=== PATIENT | female | born 1965 | race Two or more races ===

== ENCOUNTER 2017-12-28 15:38 | Emergency (ER) | payer OTHER ==
[2017-12-28 15:47] VITALS: BP 106/67; PULSE 77; TEMP 99.2; BMI 39.8
--- NOTE | 2017-12-28 15:48 | PDOC ---
Rapid Medical Evaluation Time Seen by Provider: 12/28/17 15:44 Medical Evaluation: Allergies Allergy/AdvReac Type Severity Reaction Status Date / Time No Known Drug Allergies Allergy Verified 12/28/17 15:44 12/28/17 15:44 I have performed a brief in-person evaluation of this patient. The patient presents with a chief complaint of: pain to R back, sent by PCP [facility] r/o PE, SOB for 3-4 days, pleuritic pain, radiates to "front of my stomach", 8/10 pain Pertinent physical exam findings: uncomfortable appearing, SOB I have ordered the following: labs, ekg The patient will proceed to the ED for further evaluation. Discharge Disposition - Diagnosis Shortness of breath - Referrals Referrals: Guy Saab MD [Primary Care Provider] - - Patient Instructions - Post Discharge Activity
[2017-12-28 17:41] LABS: HEMOGLOBIN 13.7 GM/dL (10.7-15.3); MEAN PLT VOLUME 10.1 fl (7.5-11.1); NEUT % 72.2 % (42.8-82.8)
[2017-12-28 17:42] LABS: URINE APPEARANCE CLEAR; URINE BILIRUBIN NEGATIVE (NEGATIVE); URINE BLOOD NEGATIVE (NEGATIVE); URINE COLOR YELLOW; URINE GLUCOSE (UA) NEGATIVE (NEGATIVE); URINE KETONE NEGATIVE (NEGATIVE); URINE LEUK ESTERASE NEGATIVE (NEGATIVE); URINE NITRITE NEGATIVE (NEGATIVE); URINE PROTEIN NEGATIVE (NEGATIVE); URINE UROBILINOGEN NEGATIVE mg/dL (0.2-1.0)
[2017-12-28 17:48] LABS: BASO % 0.5 % (0-2.0); EOS % 0.9 % (0-4.5); HEMATOCRIT 41.6 % (32.4-45.2); LYMPH % 22.6 % (8-40); MCH 29.6 pg (25.7-33.7); MEAN CELL VOLUME 89.8 fl (80-96); MONO % 3.8 % (3.8-10.2); PLATELET COUNT 257 K/MM3 (134-434); RBC 4.64 M/mm3 (3.60-5.2); RDW 13.8 % (11.6-15.6); WHITE BLOOD COUNT 13.3 K/mm3 (4.0-10.0)
[2017-12-28 18:16] LABS: ALBUMIN 4.2 g/dl (3.4-5.0); ANION GAP 10 (8-16); BILIRUBIN,TOTAL 0.2 mg/dL (0.2-1.0); BLOOD UREA NITROGEN 14 mg/dL (7-18); CALCIUM 8.9 mg/dL (8.5-10.1); CHLORIDE 104 mmol/L (98-107); CO2 23 mmol/L (21-32); CREATININE 0.6 mg/dL (0.55-1.02); GLUCOSE,RANDOM 178 mg/dL (74-106); POTASSIUM 4.1 mmol/L (3.5-5.1); SGOT/AST 12 U/L (15-37); SGPT/ALT 33 U/L (12-78); SODIUM 137 mmol/L (136-145); TOT PROT 8.1 g/dl (6.4-8.2)
[2017-12-28 18:18] LABS: ALK PHOS 125 U/L (45-117)
[2017-12-28 18:19] LABS: PROTHROMBIN TIME (PATIENT) 11.3 SEC (9.98-11.88)
[2017-12-28] MEDS ORDERED: SODIUM CHLORIDE 1,000 ML IV STA (19:20)
[2017-12-28] MEDS ORDERED: morphine CARPU-JECT 2 MG/1 ML DISP.SYRIN IVPUSH ONE (20:45)
[2017-12-28] MEDS ORDERED: MORPHINE SULFATE 10 MG/1 ML *VIAL ONE (20:47)
--- NOTE | 2017-12-28 21:31 | PDOC ---
History of Present Illness - General History Source: Patient Exam Limitations: No Limitations - History of Present Illness Initial Comments: 12/28/17 21:33 The patient is a 51 year old female, with a significant past medical history of diabetes, hyperlipidemia, and hemorrhoids, who presents to the emergency department, sent by Dr. Saab, for complaint of shortness of breath and pleuritic right sided back pain for about 3 days. The patient states the pain radiates from the right side of her back to the RLQ of her abdomen and is exacerbated with breathing and moving. She denies alleviating factors of pain. The patient denies headache and dizziness. The patient denies fever, chills, nausea, vomit, diarrhea and constipation. The patient denies dysuria, frequency, urgency and hematuria. Allergies: None reported. Past Surgical History: Social History: Current everyday smoker( a pack per day). Denies alcohol or drug use. PCP: Dr. Saab <Magdalena Dexter - Last Filed: 12/28/17 23:30> <Glory Enamorado - Last Filed: 12/28/17 23:48> - General Chief Complaint: Shortness of Breath Stated Complaint: BACK PAIN (PCP SENT) Time Seen by Provider: 12/28/17 15:44 Past History <Magdalena Dexter - Last Filed: 12/28/17 23:30> - Past Medical History COPD: No Diabetes: Yes GI Disorders: Yes (HEMORRHOIDS) Hypercholesterolemia: Yes - Surgical History Abdominal Surgery: Yes - Suicide/Smoking/Psychosocial Hx Smoking History: Current every day smoker Have you smoked in the past 12 months: Yes Number of Cigarettes Smoked Daily: 7 Information on smoking cessation initiated: No 'Breaking Loose' booklet given: 12/04/15 Hx Alcohol Use: No Drug/Substance Use Hx: No Substance Use Type: None Hx Substance Use Treatment: No <Glory Enamorado - Last Filed: 12/28/17 23:48> - Past Medical History Allergies/Adverse Reactions: Allergies Allergy/AdvReac Type Severity Reaction Status Date / Time No Known Drug Allergies Allergy Verified 12/28/17 15:44 Home Medications: Ambulatory Orders Unobtainable [Unobtainable] 12/28/17 Review of Systems - Review of Systems Able to Perform ROS?: Yes Comments:: 12/28/17 21:33 CONSTITUTIONAL: Absent: fever, chills, diaphoresis, generalized weakness, malaise, loss of appetite HEENT: Absent: rhinorrhea, nasal congestion, throat pain, throat swelling, difficulty swallowing, mouth swelling, ear pain, eye pain, visual Changes CARDIOVASCULAR: Absent: chest pain, syncope, palpitations, irregular heart rate, lightheadedness , peripheral edema RESPIRATORY: (+) shortness of breath, pleuritic right sided back pain radiating to RLQ. Absent: cough, dyspnea with exertion, orthopnea, wheezing, stridor, hemoptysis GASTROINTESTINAL: Absent: abdominal pain, abdominal distension, nausea, vomiting, diarrhea, constipation, melena, hematochezia GENITOURINARY: Absent: dysuria, frequency, urgency, hesitancy, hematuria, flank pain, genital pain MUSCULOSKELETAL: Absent: myalgia, arthralgia, joint swelling SKIN: Absent: rash, itching, pallor HEMATOLOGIC/IMMUNOLOGIC: Absent: easy bleeding, easy bruising, lymphadenopathy, frequent infections ENDOCRINE: Absent: unexplained weight gain, unexplained weight loss, heat intolerance, cold intolerance NEUROLOGIC: Absent: headache, focal weakness or paresthesias, dizziness, unsteady gait, seizure, mental status changes, bladder or bowel incontinence PSYCHIATRIC: Absent: anxiety, depression, suicidal or homicidal ideation, hallucinations. <Magdalena Dexter - Last Filed: 12/28/17 23:30> *Physical Exam - Vital Signs Last Vital Signs Temp Pulse Resp BP Pulse Ox 99.2 F 77 18 106/67 98 12/28/17 15:43 12/28/17 15:43 12/28/17 15:43 12/28/17 15:43 12/28/17 15:43 - Physical Exam Comments: 12/28/17 21:34 GENERAL: Well developed, Obese, Awake and alert. No acute distress. HEENT: Normocephalic, atraumatic. PERRLA, EOMI. No conjunctival pallor. Sclera are non- icteric. Moist mucous membranes. Oropharynx is clear. NECK: Supple. Full ROM. No JVD. Carotid pulses 2+ and symmetric, without bruits. No thyromegaly. No lymphadenopathy. CARDIOVASCULAR: Regular rate and rhythm. No murmurs, rubs, or gallops. Distal pulses are 2+ and symmetric. PULMONARY: No evidence of respiratory distress. Lungs clear to auscultation bilaterally. No wheezing, rales or rhonchi. ABDOMINAL: Soft. Non-tender. Non-distended. No rebound or guarding. No organomegaly. Normoactive bowel sounds. MUSCULOSKELETAL Normal range of motion at all joints. No bony deformities or tenderness. No CVA tenderness. EXTREMITIES: No cyanosis. No clubbing. No edema. No calf tenderness. SKIN: Warm and dry. Normal capillary refill. No rashes. No jaundice. NEUROLOGICAL: Alert, awake, appropriate. Cranial nerves 2-12 intact. Normoreflexic in the upper and lower extremities. Normal speech. Toes are down-going bilaterally. Gait is normal without ataxia. PSYCHIATRIC: Cooperative. Good eye contact. Appropriate mood and affect. <Magdalena Dexter - Last Filed: 12/28/17 23:30> - Vital Signs Last Vital Signs Temp Pulse Resp BP Pulse Ox 99.2 F 77 18 106/67 98 12/28/17 15:43 12/28/17 15:43 12/28/17 15:43 12/28/17 15:43 12/28/17 15:43 <Glory Enamorado - Last Filed: 12/28/17 23:48> Heart Score/ECG Review - ECG Intrepretation Comment:: 12/28/17 22:39 EKG was read by Dr. Enamorado at 19:29 Impression: Normal sinus rhythm with sinus arrhythmias <Magdalena Dexter - Last Filed: 12/28/17 23:30> ED Treatment Course - LABORATORY CBC & Chemistry Diagram: 12/28/17 16:55 12/28/17 16:50 - ADDITIONAL ORDERS Additional order review: Laboratory Results 12/28/17 12/28/17 12/28/17 16:55 16:55 16:55 PT with INR INR D-Dimer Sodium Potassium Chloride Carbon Dioxide Anion Gap BUN Creatinine Creat Clearance w eGFR Random Glucose Calcium Total Bilirubin AST ALT Alkaline Phosphatase Creatine Kinase Troponin I B-Natriuretic Peptide 77.76 Total Protein Albumin Urine Color Yellow Urine Appearance Clear Urine pH 5.0 Ur Specific [place] 1.026 Urine Protein Negative Urine Glucose (UA) Negative Urine Ketones Negative Urine Blood Negative Urine Nitrite Negative Urine Bilirubin Negative Urine Urobilinogen Negative Ur Leukocyte Esterase Negative Urine HCG, Qual Negative 12/28/17 12/28/17 12/28/17 16:50 16:50 16:50 PT with INR 11.30 INR 1.00 D-Dimer 502 H Sodium 137 Potassium 4.1 Chloride 104 Carbon Dioxide 23 Anion Gap 10 BUN 14 Creatinine 0.6 Creat Clearance w eGFR > 60 Random Glucose 178 H Calcium 8.9 Total Bilirubin 0.2 AST 12 L ALT 33 Alkaline Phosphatase 125 H Creatine Kinase 80 Troponin I < 0.02 B-Natriuretic Peptide Total Protein 8.1 Albumin 4.2 Urine Color Urine Appearance Urine pH Ur Specific [place] Urine Protein Urine Glucose (UA) Urine Ketones Urine Blood Urine Nitrite Urine Bilirubin Urine Urobilinogen Ur Leukocyte Esterase Urine HCG, Qual 12/28/17 16:55 RBC 4.64 MCV 89.8 MCHC 33.0 RDW 13.8 MPV 10.1 Neutrophils % 72.2 Lymphocytes % 22.6 Monocytes % 3.8 Eosinophils % 0.9 Basophils % 0.5 - RADIOLOGY Radiograph Interpretation: 12/28/17 23:30 EXAM: CTA CHEST WITH IV CONTRAST TECHNIQUE: One of more of the following dose reduction techniques were use: Automated exposure control adjustment of the mA and/or kV according to the patient size, use of iterative reconstructive technique. CT of the chest is performed with multi-planar reconstructions per PE protocol after the uneventful intravenous injection of IV contrast. Additional maximum intensity projection ( MIP) 3D post contrast images of the chest were reviewed. INDICATION: Rule out acute pulmonary embolism COMPARISON: None. FINDINGS: CARDIOVASCULAR: The heart is normal in size.. There is no significant pericardial effusion. The thoracic aorta is normal without aneurysm or dissection.. Pulmonary embolism: No evidence of acute pulmonary embolism. LUNGS: The tracheobronchial tree is grossly patent. There is no airspace consolidation, pleural effusion or pneumothorax. LYMPH NODES: Prominent bilateral axillary lymph nodes, likely reactive. UPPER ABDOMEN: Hepatomegaly with steatosis. BONES: No suspicious osseous abnormality. IMPRESSION: 1. No evidence of acute pulmonary embolism. This CT exam has been performed using low dose protocols to limit radiation exposure to as low as reasonably achievable. This center is recognized and certified by the [employer], a designation awarded to centers who have demonstrated faculty competency, clinical image excellence and radiation safety compliance requirements. Cheikh Vargas MD 12/28/2017 22:38 EST - Medications Given in the ED: ED Medications Discontinued Medications Generic Name Dose Route Start Last Admin Trade Name Freq PRN Reason Stop Dose Admin Sodium Chloride 1,000 mls @ 1,000 mls/hr 12/28/17 19:20 12/28/17 19:41 Normal Saline - IV 12/28/17 20:19 1,000 mls/hr ASDIR STA Administration Morphine Sulfate 2 mg 12/28/17 20:45 12/28/17 20:53 Morphine Injection - IVPUSH 12/28/17 20:46 2 mg ONCE ONE Administration <Magdalena Dexter - Last Filed: 12/28/17 23:30> - LABORATORY CBC & Chemistry Diagram: 12/28/17 16:55 12/28/17 16:50 - ADDITIONAL ORDERS Additional order review: Laboratory Results 12/28/17 12/28/17 12/28/17 16:55 16:55 16:55 PT with INR INR D-Dimer Sodium Potassium Chloride Carbon Dioxide Anion Gap BUN Creatinine Creat Clearance w eGFR Random Glucose Calcium Total Bilirubin AST ALT Alkaline Phosphatase Creatine Kinase Troponin I B-Natriuretic Peptide 77.76 Total Protein Albumin Urine Color Yellow Urine Appearance Clear Urine pH 5.0 Ur Specific [place] 1.026 Urine Protein Negative Urine Glucose (UA) Negative Urine Ketones Negative Urine Blood Negative Urine Nitrite Negative Urine Bilirubin Negative Urine Urobilinogen Negative Ur Leukocyte Esterase Negative Urine HCG, Qual Negative 12/28/17 12/28/17 12/28/17 16:50 16:50 16:50 PT with INR 11.30 INR 1.00 D-Dimer 502 H Sodium 137 Potassium 4.1 Chloride 104 Carbon Dioxide 23 Anion Gap 10 BUN 14 Creatinine 0.6 Creat Clearance w eGFR > 60 Random Glucose 178 H Calcium 8.9 Total Bilirubin 0.2 AST 12 L ALT 33 Alkaline Phosphatase 125 H Creatine Kinase 80 Troponin I < 0.02 B-Natriuretic Peptide Total Protein 8.1 Albumin 4.2 Urine Color Urine Appearance Urine pH Ur Specific [place] Urine Protein Urine Glucose (UA) Urine Ketones Urine Blood Urine Nitrite Urine Bilirubin Urine Urobilinogen Ur Leukocyte Esterase Urine HCG, Qual 12/28/17 16:55 RBC 4.64 MCV 89.8 MCHC 33.0 RDW 13.8 MPV 10.1 Neutrophils % 72.2 Lymphocytes % 22.6 Monocytes % 3.8 Eosinophils % 0.9 Basophils % 0.5 - RADIOLOGY Radiology Studies Ordered: Category Date Time Status CHEST CTA [CT] Stat CT Scan 12/28/17 19:19 Ordered - Medications Given in the ED: ED Medications Discontinued Medications Generic Name Dose Route Start Last Admin Trade Name Barbara PRN Reason Stop Dose Admin Sodium Chloride 1,000 mls @ 1,000 mls/hr 12/28/17 19:20 12/28/17 19:41 Normal Saline - IV 12/28/17 20:19 1,000 mls/hr ASDIR STA Administration Morphine Sulfate 2 mg 12/28/17 20:45 12/28/17 20:53 Morphine Injection - IVPUSH 12/28/17 20:46 2 mg ONCE ONE Administration <Glory Enamorado - Last Filed: 12/28/17 23:48> *DC/Admit/Observation/Transfer - Attestations Scribe Attestion: 12/28/17 21:35 Documentation prepared by Magdalena Dexter, acting as er medical technician for Glory Enamorado MD <Magdalena Dexter - Last Filed: 12/28/17 23:30> <Glory Enamorado - Last Filed: 12/28/17 23:48> Diagnosis at time of Disposition: Pleuritic chest pain - Discharge Dispostion Disposition: HOME Condition at time of disposition: Stable - Referrals Referrals: Guy Saab MD [Primary Care Provider] - - Patient Instructions Printed Discharge Instructions: DI for Atypical Chest Pain Additional Instructions: please take extra strength tylenol or aleve or motrin for pain Followup with your physician return for any worsening symptoms - Post Discharge Activity
[2017-12-28] MEDS ORDERED: KETOROLAC TROMETHAMINE 60 MG/2 ML VIAL IM ONE (23:55)
[2017-12-28] MEDS ORDERED: KETOROLAC TROMETHAMINE 60 MG/2 ML VIAL ONE (23:56)
--- NOTE | 2017-12-29 10:13 | EKG ---
Test Reason : Blood Pressure : / mmHG Vent. Rate : 077 BPM Atrial Rate : 077 BPM P-R Int : 160 ms QRS Dur : 086 ms QT Int : 392 ms P-R-T Axes : 023 043 038 degrees QTc Int : 443 ms NORMAL SINUS RHYTHM WITH SINUS ARRHYTHMIA NORMAL ECG WHEN COMPARED WITH ECG OF 22-DEC-2016 18:27, NO SIGNIFICANT CHANGE WAS FOUND Confirmed by AGAPITO LINDER MD ([id number]) on 12/29/2017 10:12:49 AM Referred By: Confirmed By:AGAPITO LINDER MD
== END 2017-12-28 23:59 | disposition home or self-care (01) ==
LOC: JER 15:38 → SUPCPDRO 15:38 → JER 23:59
PROC: 3E0337Z Introduction of Electrolytic and Water Balance Substance into Peripheral Vein, Percutaneous Approach (ICD-10-PCS; principal; 2017-12-28)
PROC: 3E033NZ Introduction of Analgesics, Hypnotics, Sedatives into Peripheral Vein, Percutaneous Approach (ICD-10-PCS; 2017-12-28)
PROC: 3E0233Z Introduction of Anti-inflammatory into Muscle, Percutaneous Approach (ICD-10-PCS; 2017-12-28)
DX: R07.89 Other chest pain (principal); E11.9 Type 2 diabetes mellitus without complications; E78.00 Pure hypercholesterolemia, unspecified; F17.210 Nicotine dependence, cigarettes, uncomplicated
CPT/HCPCS: 36415; 71046-TC-FY; 71275-TC; 80053; 81003; 82550; 83880; 84484; 84703; 85025; 85379; 85610; 87086; 93005; 93010; 99284-25

== ENCOUNTER 2020-09-26 04:49 | Day surgery (SDC) | payer OTHER ==
[2020-09-25 12:56] VITALS: BMI 39.6
[2020-09-26 08:59] VITALS: TEMP 98.2
[2020-09-26] MEDS ORDERED: BACITRACIN 15 GM TUBE TOPICAL OINTMENT ONE (09:22)
[2020-09-26 11:17] VITALS: BP 126/82; PULSE 72
== END 2020-09-26 10:40 | disposition home or self-care (01) ==
LOC: JASU-ENDO 04:49
PROVIDERS: ATTEND Internal Medicine Gastroenterology
PROC: 0DB68ZX Excision of Stomach, Via Natural or Artificial Opening Endoscopic, Diagnostic (ICD-10-PCS; 2020-09-26)
PROC: 0DB98ZX Excision of Duodenum, Via Natural or Artificial Opening Endoscopic, Diagnostic (ICD-10-PCS; principal; 2020-09-26 08:00)
DX: K29.50 Unspecified chronic gastritis without bleeding (principal); K29.80 Duodenitis without bleeding
CPT/HCPCS: 82962; 88305-TC; 88342-TC

== ENCOUNTER 2020-10-01 05:04 | Day surgery (SDC) | payer OTHER ==
[2020-09-27 15:39] VITALS: BMI 39.6
[2020-10-01 08:54] VITALS: TEMP 98
[2020-10-01 10:05] VITALS: BP 109/76; PULSE 78
== END 2020-10-01 09:47 | disposition home or self-care (01) ==
LOC: JASU-ENDO 05:04
PROVIDERS: ATTEND Internal Medicine Gastroenterology
PROC: 0DBP8ZX Excision of Rectum, Via Natural or Artificial Opening Endoscopic, Diagnostic (ICD-10-PCS; principal; 2020-10-01 08:00)
DX: K57.30 Diverticulosis of large intestine without perforation or abscess without bleeding (principal); K62.89 Other specified diseases of anus and rectum; K64.8 Other hemorrhoids; I10 Essential (primary) hypertension; E11.9 Type 2 diabetes mellitus without complications
CPT/HCPCS: 82962; 88305-TC

== ENCOUNTER 2021-06-10 12:09 | Inpatient (IN) | payer OTHER ==
[2021-06-10] MEDS ORDERED: ACETAMINOPHEN 500 MG TABLET (FP) PO ONE (13:40)
[2021-06-10] MEDS ORDERED: ACETAMINOPHEN 1000 MG/100 ML VIAL (NON FORMULARY) IVPB ONE (14:11)
[2021-06-10] MEDS ORDERED: ACETAMINOPHEN INJECTION 100 ML IVPB ONE (14:11)
[2021-06-10] MEDS ORDERED: PIPERACILLIN/TAZOB 4.5 GM 4.5 GM in DEXTROSE 5%-WATER 100 ML IVPB ONE (14:25)
[2021-06-10] MEDS ORDERED: VANCOMYCIN 1 GM in D5W (PRE-DOCKED) 1,000 MG/250 ML IVPB ONE (14:26)
[2021-06-10] MEDS ORDERED: VANCOMYCIN 1 GRAM (PRE-DOCKED) 1,000 MG/250 ML BAG IVPB ONE ×2 (14:36→14:37)
[2021-06-10] MEDS ORDERED: PIPERACILLIN/TAZOB 4.5 GM 4.5 GM/100 ML BAG IVPB ONE (14:36)
[2021-06-10 14:45] LABS: BASO % 1.1 % (0-2.0); EOS % 0.7 % (0-4.5); HEMATOCRIT 40.9 % (32.4-45.2); HEMOGLOBIN 13.7 GM/dL (10.7-15.3); LYMPH % 16.6 % (8-40); MCH 29.7 pg (25.7-33.7); MCHC 33.5 g/dl (32.0-36.0); MEAN CELL VOLUME 88.6 fl (80-96); MEAN PLT VOLUME 9.5 fl (7.5-11.1); MONO % 2.8 % (3.8-10.2); NEUT % 78.8 % (42.8-82.8); PLATELET COUNT 278 10^3/uL (134-434); RBC 4.61 M/mm3 (3.60-5.2); RDW 14.2 % (11.6-15.6); WHITE BLOOD COUNT 15.8 K/mm3 (4.0-10.0)
[2021-06-10 14:53] LABS: INR 1.02 (0.83-1.09); PROTHROMBIN TIME (PATIENT) 12.3 SEC (9.7-13.0)
[2021-06-10 14:55] LABS: ACTIVATED PTT 28.7 SECONDS (25.2-36.5)
[2021-06-10 15:10] LABS: CHLORIDE 106 mmol/L (98-107); SODIUM 137 mmol/L (136-145)
[2021-06-10 15:12] LABS: BLOOD UREA NITROGEN 9.6 mg/dL (7-18); CALCIUM 9.2 mg/dL (8.5-10.1)
[2021-06-10 15:13] LABS: ALBUMIN 3.8 g/dl (3.4-5.0); CO2 22 mmol/L (21-32); GLUCOSE,RANDOM 166 mg/dL (74-106)
[2021-06-10 15:16] LABS: CREATININE 0.6 mg/dL (0.55-1.3)
[2021-06-10 15:18] LABS: ALK PHOS 122 U/L (45-117); BILIRUBIN,TOTAL 0.5 mg/dL (0.2-1); TOT PROT 8.2 g/dl (6.4-8.2)
[2021-06-10 15:24] LABS: SGOT/AST 58 U/L (15-37)
[2021-06-10 15:33] LABS: ANION GAP 10 MMOL/L (8-16); SGPT/ALT 24 U/L (13-61)
[2021-06-10 21:04] LABS: CALCIUM 8.9 mg/dL (8.5-10.1)
[2021-06-10 21:05] LABS: BLOOD UREA NITROGEN 14.2 mg/dL (7-18)
[2021-06-10 21:08] LABS: CREATININE 0.8 mg/dL (0.55-1.3)
[2021-06-10] MEDS ORDERED: PT OWN MED DRAWER 7, Y5N ONE (21:22)
[2021-06-10] MEDS: NYSTATIN POWDER 100,000 UNITS/GM - 15 GM TOPICAL POWDER TP SCH (21:41)
[2021-06-10] MEDS: HEPARIN NA (PORCINE) 5,000 UNITS/ML 1ML VIAL SQ SCH (21:59)
[2021-06-10] MEDS: INSULIN SLIDING SCALE (NOVOLOG) 1 VIAL SQ SCH (22:00)
[2021-06-10 22:37] VITALS: BMI 35.3
[2021-06-11] MEDS ORDERED: PIPERACILLIN/TAZOBACTAM 3.375 GM VIAL IVPB ONE ×2 (01:00→09:02)
[2021-06-11] MEDS ORDERED: DEXTROSE 5%-WATER - 50 ML IVPB ONE ×2 (01:00→09:02)
[2021-06-11] MEDS: PIPERACILLIN/TAZOB 3.375 GM 3.375 GM in DEXTROSE 5%-WATER - 50 ML IVPB SCH ×3 (01:41→11:39)
[2021-06-11] MEDS: HEPARIN NA (PORCINE) 5,000 UNITS/ML 1ML VIAL SQ SCH ×3 (06:26→21:16)
[2021-06-11] MEDS: INSULIN (LEVEMIR) 100 UNITS/ML UNITS SQ SCH (06:27)
[2021-06-11] MEDS: metFORMIN HCL 500 MG TABLET (FP) PO SCH ×2 (06:27→17:43)
[2021-06-11] MEDS: sitaGLIPtin PHOSPHATE 50 MG TABLET PO SCH (06:27)
[2021-06-11] MEDS: NYSTATIN POWDER 100,000 UNITS/GM - 15 GM TOPICAL POWDER TP SCH ×3 (06:27→21:18)
[2021-06-11] MEDS: INSULIN SLIDING SCALE (NOVOLOG) 1 VIAL SQ SCH ×4 (06:28→21:20)
[2021-06-11] MEDS: ACETAMINOPHEN 325 MG TABLET (FP) PO PRN ×2 (06:53→18:24)
[2021-06-11 07:30] LABS: BASO % 0.6 % (0-2.0); EOS % 2.8 % (0-4.5); HEMATOCRIT 40.8 % (32.4-45.2); HEMOGLOBIN 13.6 GM/dL (10.7-15.3); LYMPH % 26.7 % (8-40); MCH 30.2 pg (25.7-33.7); MCHC 33.5 g/dl (32.0-36.0); MEAN CELL VOLUME 90.2 fl (80-96); MEAN PLT VOLUME 9.3 fl (7.5-11.1); MONO % 3.8 % (3.8-10.2); NEUT % 66.1 % (42.8-82.8); PLATELET COUNT 249 10^3/uL (134-434); RBC 4.52 M/mm3 (3.60-5.2); RDW 14.1 % (11.6-15.6); WHITE BLOOD COUNT 9.9 K/mm3 (4.0-10.0)
[2021-06-11 07:58] LABS: ALBUMIN 3.4 g/dl (3.4-5.0); CALCIUM 8.8 mg/dL (8.5-10.1)
[2021-06-11 07:59] LABS: BLOOD UREA NITROGEN 8.4 mg/dL (7-18); MAGNESIUM 2.1 mg/dL (1.8-2.4)
[2021-06-11 08:02] LABS: CREATININE 0.5 mg/dL (0.55-1.3)
[2021-06-11 08:03] LABS: BILIRUBIN,TOTAL 0.4 mg/dL (0.2-1); TOT PROT 7.1 g/dl (6.4-8.2)
[2021-06-11] MEDS ORDERED: SODIUM CHLORIDE NASAL SPRAY 44 ML BOTTLE NS PRN (12:19)
[2021-06-11] MEDS: LORATADINE 10 MG TABLET PO SCH (14:45)
[2021-06-11] MEDS: FLUTICASONE PROP 0.05% 16 GM NASAL SPRAY NS SCH (14:45)
[2021-06-11] MEDS ORDERED: PCA PUMP NR ONE (17:23)
[2021-06-11] MEDS: CLINDAMYCIN 600MG PREMIX IVPB 600 MG/50 ML BAG IVPB SCH (17:43)
[2021-06-12] MEDS: CLINDAMYCIN 600MG PREMIX IVPB 600 MG/50 ML BAG IVPB SCH ×3 (01:13→17:48)
[2021-06-12] MEDS: HEPARIN NA (PORCINE) 5,000 UNITS/ML 1ML VIAL SQ SCH ×3 (05:50→21:10)
[2021-06-12] MEDS: NYSTATIN POWDER 100,000 UNITS/GM - 15 GM TOPICAL POWDER TP SCH ×3 (05:51→21:11)
[2021-06-12] MEDS: sitaGLIPtin PHOSPHATE 50 MG TABLET PO SCH (06:06)
[2021-06-12] MEDS: INSULIN SLIDING SCALE (NOVOLOG) 1 VIAL SQ SCH ×4 (06:06→21:14)
[2021-06-12] MEDS: INSULIN (LEVEMIR) 100 UNITS/ML UNITS SQ SCH (06:06)
[2021-06-12] MEDS: metFORMIN HCL 500 MG TABLET (FP) PO SCH ×2 (06:06→17:48)
[2021-06-12 08:26] LABS: HEMOGLOBIN 14.3 GM/dL (10.7-15.3); MCH 30.4 pg (25.7-33.7); MCHC 34.2 g/dl (32.0-36.0); MEAN CELL VOLUME 89.1 fl (80-96); MEAN PLT VOLUME 9.4 fl (7.5-11.1); PLATELET COUNT 282 10^3/uL (134-434); RBC 4.71 M/mm3 (3.60-5.2); RDW 13.7 % (11.6-15.6); WHITE BLOOD COUNT 10.8 K/mm3 (4.0-10.0)
[2021-06-12 08:46] LABS: BLOOD UREA NITROGEN 8.6 mg/dL (7-18); CALCIUM 9.1 mg/dL (8.5-10.1)
[2021-06-12 08:49] LABS: CREATININE 0.6 mg/dL (0.55-1.3)
[2021-06-12] MEDS: FLUTICASONE PROP 0.05% 16 GM NASAL SPRAY NS SCH (10:29)
[2021-06-12] MEDS: LORATADINE 10 MG TABLET PO SCH (10:29)
[2021-06-12 12:02] LABS: HIV INTERPRETATION NEGATIVE (NEGATIVE)
[2021-06-12] MEDS: ACETAMINOPHEN 325 MG TABLET (FP) PO PRN ×3 (13:09→22:42)
[2021-06-12 21:32] LABS: PH,URINE 5.5 (5.0-8.0); URINE APPEARANCE CLOUDY; URINE BILIRUBIN NEGATIVE (NEGATIVE); URINE COLOR YELLOW; URINE GLUCOSE (UA) NEGATIVE (NEGATIVE); URINE KETONE NEGATIVE (NEGATIVE); URINE LEUK ESTERASE NEGATIVE (NEGATIVE); URINE NITRITE NEGATIVE (NEGATIVE); URINE PROTEIN NEGATIVE (NEGATIVE); URINE UROBILINOGEN 0.2 mg/dL (0.2-1.0)
[2021-06-13] MEDS: CLINDAMYCIN 600MG PREMIX IVPB 600 MG/50 ML BAG IVPB SCH ×2 (01:29→09:13)
[2021-06-13] MEDS: NYSTATIN POWDER 100,000 UNITS/GM - 15 GM TOPICAL POWDER TP SCH ×2 (06:18→14:22)
[2021-06-13] MEDS: HEPARIN NA (PORCINE) 5,000 UNITS/ML 1ML VIAL SQ SCH ×2 (06:18→14:22)
[2021-06-13] MEDS: metFORMIN HCL 500 MG TABLET (FP) PO SCH (06:19)
[2021-06-13] MEDS: sitaGLIPtin PHOSPHATE 50 MG TABLET PO SCH (06:19)
[2021-06-13] MEDS: INSULIN SLIDING SCALE (NOVOLOG) 1 VIAL SQ SCH ×2 (06:20→11:32)
[2021-06-13] MEDS: INSULIN (LEVEMIR) 100 UNITS/ML UNITS SQ SCH (07:27)
[2021-06-13 08:06] LABS: IGA IMMUNOGLOBULIN 422 mg/dL (87-352); IGG QN IMMUNOGLOBULIN 1032 mg/dL (586-1602); IGM QN SERUM 81 mg/dL (26-217)
[2021-06-13] MEDS: ACETAMINOPHEN 325 MG TABLET (FP) PO PRN (09:12)
[2021-06-13] MEDS: LORATADINE 10 MG TABLET PO SCH (09:13)
[2021-06-13] MEDS: FLUTICASONE PROP 0.05% 16 GM NASAL SPRAY NS SCH (09:23)
[2021-06-13 12:07] LABS: HEMATOCRIT 39.7 % (32.4-45.2); HEMOGLOBIN 13.6 GM/dL (10.7-15.3); MCH 30.4 pg (25.7-33.7); MCHC 34.1 g/dl (32.0-36.0); MEAN PLT VOLUME 9.3 fl (7.5-11.1); PLATELET COUNT 255 10^3/uL (134-434); RBC 4.47 M/mm3 (3.60-5.2); RDW 13.6 % (11.6-15.6); WHITE BLOOD COUNT 11.2 K/mm3 (4.0-10.0)
[2021-06-13 12:35] LABS: CHLORIDE 104 mmol/L (98-107); SODIUM 138 mmol/L (136-145)
[2021-06-13 12:37] LABS: ALBUMIN 3.4 g/dl (3.4-5.0); ANION GAP 10 MMOL/L (8-16); BLOOD UREA NITROGEN 13.8 mg/dL (7-18); CALCIUM 8.9 mg/dL (8.5-10.1); CO2 25 mmol/L (21-32); GLUCOSE,RANDOM 116 mg/dL (74-106)
[2021-06-13 12:40] LABS: CREATININE 0.5 mg/dL (0.55-1.3); SGOT/AST 14 U/L (15-37); SGPT/ALT 23 U/L (13-61)
[2021-06-13 12:42] LABS: BILIRUBIN,TOTAL 0.2 mg/dL (0.2-1); TOT PROT 7.2 g/dl (6.4-8.2)
[2021-06-13 12:43] LABS: ALK PHOS 98 U/L (45-117)
[2021-06-13 15:59] VITALS: BP 102/77; PULSE 77; TEMP 98.6
== END 2021-06-13 16:08 | disposition home health service (06) | DRG 572 ==
LOC: JER 12:09 → JERBED 15:36 → J8W 18:23
PROVIDERS: ADMIT Family Medicine; ATTEND Family Medicine
PROC: 0J9C0ZZ Drainage of Pelvic Region Subcutaneous Tissue and Fascia, Open Approach (ICD-10-PCS; principal; 2021-06-12)
PROC: 0JBC0ZZ Excision of Pelvic Region Subcutaneous Tissue and Fascia, Open Approach (ICD-10-PCS; 2021-06-12)
DX: L02.214 Cutaneous abscess of groin (principal); R19.00 Intra-abdominal and pelvic swelling, mass and lump, unspecified site; F17.210 Nicotine dependence, cigarettes, uncomplicated; E11.42 Type 2 diabetes mellitus with diabetic polyneuropathy; E87.5 Hyperkalemia; N61.1 Abscess of the breast and nipple; E11.65 Type 2 diabetes mellitus with hyperglycemia
CPT/HCPCS: 36415; 74176-TC; 80048; 80053; 81003; 82550; 82784; 82962; 83036; 83735; 84443; 84484; 85025; 85027; 85610; 85730; 86850; 86900; 86901; 87040; 87070; 87205; 87389; 88307-TC; 93005; 93010; 99285-25; C9803; J0131; J1644; U0003; U0005

== ENCOUNTER 2022-09-10 11:24 | Emergency (ER) | payer OTHER ==
[2022-09-10 11:38] VITALS: BP 114/74; PULSE 85; RESP 16; TEMP 98.8; BMI 35.2
[2022-09-10] MEDS ORDERED: IBUPROFEN 400 MG TABLET (FP) PO ONE ×2 (12:16→12:30)
[2022-09-10] MEDS ORDERED: LIDOCAINE 5% TOPICAL PATCH TP ONE (12:55)
[2022-09-10] MEDS ORDERED: LIDOCAINE 5% TOPICAL PATCH ONE (12:58)
[2022-09-10] MEDS ORDERED: LIDOCAINE PATCH REMOVAL MC SCH (22:00)
== END 2022-09-10 13:11 | disposition home or self-care (01) ==
LOC: FER 11:24
DX: M54.41 Lumbago with sciatica, right side (principal)
CPT/HCPCS: 81003; 87086; 99283-25

== ENCOUNTER 2022-09-12 03:39 | Inpatient (IN) | payer OTHER ==
[2022-09-12 04:01] VITALS: BMI 34.0
[2022-09-12] MEDS ORDERED: FAMOTIDINE 20 MG/50 ML IVPB 20 MG/50 ML MG IVPB ONE ×2 (04:20→04:25)
[2022-09-12] MEDS ORDERED: ACETAMINOPHEN 1000 MG/100 ML BAG IVPB ONE (04:20)
[2022-09-12] MEDS ORDERED: SODIUM CHLORIDE 0.9% 500 ML INFUS.BAG IV ONE (04:20)
[2022-09-12] MEDS ORDERED: ONDANSETRON 4 MG/2 ML VIAL IVPUSH ONE (04:25)
[2022-09-12] MEDS ORDERED: ACETAMINOPHEN INJECTION 100 ML IVPB ONE (04:25)
[2022-09-12] MEDS ORDERED: ONDANSETRON 4 MG/2 ML VIAL ONE (04:25)
[2022-09-12 04:37] LABS: BASO % 0.6 % (0-2.0); EOS % 1.8 % (0-4.5); HEMATOCRIT 39.5 % (32.4-45.2); HEMOGLOBIN 13.5 GM/dL (10.7-15.3); LYMPH % 23.6 % (8-40); MCH 30.7 pg (25.7-33.7); MCHC 34.1 g/dl (32.0-36.0); MEAN CELL VOLUME 89.9 fl (80-96); MEAN PLT VOLUME 8.7 fl (7.5-11.1); MONO % 3.3 % (3.8-10.2); NEUT % 70.7 % (42.8-82.8); PLATELET COUNT 268 10^3/uL (134-434); RBC 4.39 M/mm3 (3.60-5.2); RDW 13.4 % (11.6-15.6); WHITE BLOOD COUNT 11.1 K/mm3 (4.0-10.0)
[2022-09-12 04:46] LABS: INR 0.99 (0.83-1.09); PROTHROMBIN TIME (PATIENT) 11.4 SEC (9.7-13.0)
[2022-09-12 04:48] LABS: ACTIVATED PTT 29.9 SECONDS (25.2-36.5)
[2022-09-12 05:03] LABS: MAGNESIUM 2.1 mg/dL (1.8-2.4)
[2022-09-12 05:06] LABS: URINE APPEARANCE CLOUDY; URINE BILIRUBIN NEGATIVE (NEGATIVE); URINE COLOR YELLOW; URINE GLUCOSE (UA) TRACE (NEGATIVE); URINE KETONE NEGATIVE (NEGATIVE); URINE LEUK ESTERASE NEGATIVE (NEGATIVE); URINE NITRITE NEGATIVE (NEGATIVE); URINE PROTEIN TRACE (NEGATIVE); URINE UROBILINOGEN 0.2 mg/dL (0.2-1.0)
[2022-09-12 05:44] LABS: ALBUMIN 3.6 g/dl (3.4-5.0); BLOOD UREA NITROGEN 18.3 mg/dL (7-18); CALCIUM 8.8 mg/dL (8.5-10.1)
[2022-09-12 05:48] LABS: CREATININE 0.7 mg/dL (0.55-1.3)
[2022-09-12 05:49] LABS: BILIRUBIN,TOTAL 0.2 mg/dL (0.2-1); TOT PROT 7.5 g/dl (6.4-8.2)
[2022-09-12] MEDS ORDERED: morphine CARPU-JECT 4 MG/1 ML DISP.SYRIN IVPUSH ONE ×2 (12:47→19:52)
[2022-09-12] MEDS ORDERED: DEXTROSE 5%-NORMAL SALINE 1,000 ML IV SCH (13:00)
[2022-09-12] MEDS ORDERED: morphine SULFATE 4 MG/ML VIAL ONE ×2 (13:07→20:04)
[2022-09-12] MEDS ORDERED: D5-1/2NS+20 MEQ KCL - 20 MEQ/1,000 ML INFUS.BAG IV SCH (15:45)
[2022-09-12] MEDS ORDERED: HEPARIN NA (PORCINE) 5,000 UNITS/ML 1ML VIAL ONE (21:21)
[2022-09-12] MEDS: FENOFIBRIC ACID 135 MG CAP PO SCH (21:22)
[2022-09-12] MEDS: INSULIN SLIDING SCALE (NOVOLOG) 1 VIAL SQ SCH (22:02)
[2022-09-12] MEDS: HEPARIN NA (PORCINE) 5,000 UNITS/ML 1ML VIAL SQ SCH (22:02)
[2022-09-13] MEDS: ONDANSETRON 4 MG/2 ML VIAL IVPUSH PRN ×3 (00:02→18:06)
[2022-09-13] MEDS: INSULIN SLIDING SCALE (NOVOLOG) 1 VIAL SQ SCH ×4 (06:25→21:51)
[2022-09-13] MEDS: FENOFIBRIC ACID 135 MG CAP PO SCH (09:48)
[2022-09-13] MEDS: HEPARIN NA (PORCINE) 5,000 UNITS/ML 1ML VIAL SQ SCH ×2 (09:48→21:15)
[2022-09-13] MEDS ORDERED: FLU VACC QS2022-23(6MOS UP)/PF 60 MCG/0.5 ML SYRINGE IM ONE (10:00)
[2022-09-13 10:29] LABS: BASO % 0.6 % (0-2.0); EOS % 1.7 % (0-4.5); HEMATOCRIT 42.2 % (32.4-45.2); HEMOGLOBIN 14.1 GM/dL (10.7-15.3); LYMPH % 23.1 % (8-40); MCH 30.2 pg (25.7-33.7); MCHC 33.4 g/dl (32.0-36.0); MEAN CELL VOLUME 90.5 fl (80-96); MEAN PLT VOLUME 9.5 fl (7.5-11.1); MONO % 4.2 % (3.8-10.2); NEUT % 70.4 % (42.8-82.8); PLATELET COUNT 251 10^3/uL (134-434); RBC 4.66 M/mm3 (3.60-5.2); RDW 13.7 % (11.6-15.6); WHITE BLOOD COUNT 9.8 K/mm3 (4.0-10.0)
[2022-09-13 10:52] LABS: BLOOD UREA NITROGEN 8.2 mg/dL (7-18); CALCIUM 9.2 mg/dL (8.5-10.1)
[2022-09-13 10:53] LABS: ALBUMIN 3.7 g/dl (3.4-5.0)
[2022-09-13 10:55] LABS: CREATININE 0.5 mg/dL (0.55-1.3)
[2022-09-13 10:57] LABS: BILIRUBIN,TOTAL 0.3 mg/dL (0.2-1); TOT PROT 7.6 g/dl (6.4-8.2)
[2022-09-13] MEDS: LACTATED RINGERS SOLUTION 1,000 ML/1,000 ML INFUS.BAG IV SCH ×2 (13:10→21:15)
[2022-09-14] MEDS: INSULIN SLIDING SCALE (NOVOLOG) 1 VIAL SQ SCH ×4 (06:22→22:04)
[2022-09-14] MEDS: LACTATED RINGERS SOLUTION 1,000 ML/1,000 ML INFUS.BAG IV SCH ×2 (06:22→22:04)
[2022-09-14] MEDS: HEPARIN NA (PORCINE) 5,000 UNITS/ML 1ML VIAL SQ SCH ×2 (10:23→22:04)
[2022-09-14] MEDS: FENOFIBRIC ACID 135 MG CAP PO SCH (10:23)
[2022-09-14 11:07] LABS: BASO % 0.7 % (0-2.0); EOS % 0.7 % (0-4.5); HEMATOCRIT 39.7 % (32.4-45.2); HEMOGLOBIN 13.2 GM/dL (10.7-15.3); LYMPH % 14.7 % (8-40); MCHC 33.3 g/dl (32.0-36.0); MEAN CELL VOLUME 90.2 fl (80-96); MEAN PLT VOLUME 9.5 fl (7.5-11.1); MONO % 3.7 % (3.8-10.2); NEUT % 80.2 % (42.8-82.8); PLATELET COUNT 259 10^3/uL (134-434); RDW 13.5 % (11.6-15.6); WHITE BLOOD COUNT 9.7 K/mm3 (4.0-10.0)
[2022-09-14 11:26] LABS: CALCIUM 9.2 mg/dL (8.5-10.1)
[2022-09-14 11:27] LABS: ALBUMIN 3.5 g/dl (3.4-5.0); BLOOD UREA NITROGEN 6.7 mg/dL (7-18)
[2022-09-14 11:30] LABS: CREATININE 0.5 mg/dL (0.55-1.3)
[2022-09-14 11:31] LABS: BILIRUBIN,TOTAL 0.4 mg/dL (0.2-1); TOT PROT 7.2 g/dl (6.4-8.2)
[2022-09-14] MEDS: ONDANSETRON 4 MG/2 ML VIAL IVPUSH PRN ×2 (12:24→21:57)
[2022-09-15] MEDS: INSULIN SLIDING SCALE (NOVOLOG) 1 VIAL SQ SCH ×4 (06:21→23:52)
[2022-09-15] MEDS: FENOFIBRIC ACID 135 MG CAP PO SCH (09:30)
[2022-09-15 10:22] LABS: BASO % 0.4 % (0-2.0); EOS % 0.9 % (0-4.5); HEMATOCRIT 40.7 % (32.4-45.2); HEMOGLOBIN 13.4 GM/dL (10.7-15.3); LYMPH % 18.5 % (8-40); MCH 29.7 pg (25.7-33.7); MEAN CELL VOLUME 89.8 fl (80-96); MEAN PLT VOLUME 9.4 fl (7.5-11.1); NEUT % 76.2 % (42.8-82.8); PLATELET COUNT 299 10^3/uL (134-434); RBC 4.53 M/mm3 (3.60-5.2); RDW 13.5 % (11.6-15.6); WHITE BLOOD COUNT 9.7 K/mm3 (4.0-10.0)
[2022-09-15 10:40] LABS: CALCIUM 9.2 mg/dL (8.5-10.1)
[2022-09-15 10:41] LABS: ALBUMIN 3.6 g/dl (3.4-5.0); BLOOD UREA NITROGEN 6.5 mg/dL (7-18)
[2022-09-15 10:44] LABS: CREATININE 0.6 mg/dL (0.55-1.3)
[2022-09-15 10:45] LABS: BILIRUBIN,TOTAL 0.8 mg/dL (0.2-1); TOT PROT 7.1 g/dl (6.4-8.2)
[2022-09-15] MEDS: LACTATED RINGERS SOLUTION 1,000 ML/1,000 ML INFUS.BAG IV SCH ×2 (12:15→23:50)
[2022-09-15] MEDS ORDERED: BISACODYL 5 MG TABLET.DR (FP) PO ONE (15:28)
[2022-09-15] MEDS ORDERED: PEG 3350/NA SULF BICARB CL/KCL 4000 ML SOLN.RECON PO ONE (17:00)
[2022-09-15] MEDS: PANTOPRAZOLE 40 MG TABLET PO SCH (22:54)
[2022-09-15] MEDS: ONDANSETRON 4 MG/2 ML VIAL IVPUSH PRN (22:54)
[2022-09-16] MEDS: INSULIN SLIDING SCALE (NOVOLOG) 1 VIAL SQ SCH ×4 (08:42→21:34)
[2022-09-16] MEDS: FENOFIBRIC ACID 135 MG CAP PO SCH (09:35)
[2022-09-16] MEDS: PANTOPRAZOLE 40 MG TABLET PO SCH ×2 (09:35→21:30)
[2022-09-16] MEDS ORDERED: FAMOTIDINE 20 MG/50 ML IVPB 20 MG/50 ML MG IVPB ONE (11:42)
[2022-09-16 15:27] LABS: BASO % 0.9 % (0-2.0); EOS % 1.1 % (0-4.5); HEMATOCRIT 39.6 % (32.4-45.2); HEMOGLOBIN 12.7 GM/dL (10.7-15.3); LYMPH % 19.2 % (8-40); MCH 29.1 pg (25.7-33.7); MCHC 32.1 g/dl (32.0-36.0); MEAN CELL VOLUME 90.5 fl (80-96); MEAN PLT VOLUME 9.5 fl (7.5-11.1); MONO % 4.2 % (3.8-10.2); NEUT % 74.6 % (42.8-82.8); PLATELET COUNT 245 10^3/uL (134-434); RBC 4.37 M/mm3 (3.60-5.2); RDW 13.7 % (11.6-15.6); WHITE BLOOD COUNT 12.6 K/mm3 (4.0-10.0)
[2022-09-16 15:45] LABS: CALCIUM 8.8 mg/dL (8.5-10.1)
[2022-09-16 15:46] LABS: ALBUMIN 3.4 g/dl (3.4-5.0); BLOOD UREA NITROGEN 5.5 mg/dL (7-18); MAGNESIUM 1.9 mg/dL (1.8-2.4)
[2022-09-16 15:49] LABS: CREATININE 0.5 mg/dL (0.55-1.3)
[2022-09-16 15:50] LABS: BILIRUBIN,TOTAL 0.4 mg/dL (0.2-1); TOT PROT 6.6 g/dl (6.4-8.2)
[2022-09-16] MEDS: LACTATED RINGERS SOLUTION 1,000 ML/1,000 ML INFUS.BAG IV SCH ×2 (18:19→21:29)
[2022-09-16] MEDS ORDERED: ONDANSETRON 4 MG/2 ML VIAL IVPUSH PRN (19:32)
[2022-09-16] MEDS: HEPARIN NA (PORCINE) 5,000 UNITS/ML 1ML VIAL SQ SCH (21:30)
[2022-09-17] MEDS: LACTATED RINGERS SOLUTION 1,000 ML/1,000 ML INFUS.BAG IV SCH ×2 (01:49→15:30)
[2022-09-17] MEDS: INSULIN SLIDING SCALE (NOVOLOG) 1 VIAL SQ SCH ×4 (06:17→21:55)
[2022-09-17] MEDS ORDERED: REGADENOSON 0.4 MG/5 ML PRE-FILLED SYRINGE IVPUSH ONE ×2 (09:53→10:15)
[2022-09-17] MEDS: PANTOPRAZOLE 40 MG TABLET PO SCH ×2 (11:44→21:51)
[2022-09-17] MEDS: FENOFIBRIC ACID 135 MG CAP PO SCH (11:44)
[2022-09-17] MEDS: HEPARIN NA (PORCINE) 5,000 UNITS/ML 1ML VIAL SQ SCH ×2 (11:44→21:51)
[2022-09-17 15:40] LABS: EOS % 0.6 % (0-4.5); HEMOGLOBIN 12.5 GM/dL (10.7-15.3); LYMPH % 15.3 % (8-40); MCH 30.3 pg (25.7-33.7); MCHC 33.6 g/dl (32.0-36.0); MEAN CELL VOLUME 90.1 fl (80-96); MEAN PLT VOLUME 8.9 fl (7.5-11.1); MONO % 3.8 % (3.8-10.2); NEUT % 79.3 % (42.8-82.8); PLATELET COUNT 285 10^3/uL (134-434); RBC 4.11 M/mm3 (3.60-5.2); RDW 13.6 % (11.6-15.6)
[2022-09-17 16:09] LABS: CALCIUM 9.1 mg/dL (8.5-10.1)
[2022-09-17 16:11] LABS: ALBUMIN 3.4 g/dl (3.4-5.0); BLOOD UREA NITROGEN 8.4 mg/dL (7-18)
[2022-09-17 16:13] LABS: CREATININE 0.7 mg/dL (0.55-1.3)
[2022-09-17 16:15] LABS: BILIRUBIN,TOTAL 0.4 mg/dL (0.2-1); TOT PROT 6.8 g/dl (6.4-8.2)
[2022-09-18] MEDS: LACTATED RINGERS SOLUTION 1,000 ML/1,000 ML INFUS.BAG IV SCH (02:06)
[2022-09-18] MEDS: INSULIN SLIDING SCALE (NOVOLOG) 1 VIAL SQ SCH ×2 (06:22→11:44)
[2022-09-18 08:42] VITALS: RESP 18
[2022-09-18 08:45] VITALS: BP 119/66; PULSE 59; TEMP 97.3
[2022-09-18] MEDS: FENOFIBRIC ACID 135 MG CAP PO SCH (09:37)
[2022-09-18] MEDS: HEPARIN NA (PORCINE) 5,000 UNITS/ML 1ML VIAL SQ SCH (09:37)
[2022-09-18] MEDS: PANTOPRAZOLE 40 MG TABLET PO SCH (09:37)
== END 2022-09-18 13:19 | disposition home or self-care (01) | DRG 440 ==
LOC: JER 03:39 → JERBED 14:00 → J5S 09-13 02:20 → J2C 09-16 14:54 → J4W 09-16 16:12
PROVIDERS: ADMIT Family Medicine; ATTEND Family Medicine
PROC: 0DB68ZX Excision of Stomach, Via Natural or Artificial Opening Endoscopic, Diagnostic (ICD-10-PCS; 2022-09-15)
PROC: 0DB98ZX Excision of Duodenum, Via Natural or Artificial Opening Endoscopic, Diagnostic (ICD-10-PCS; principal; 2022-09-15 12:15)
PROC: 0DJD8ZZ Inspection of Lower Intestinal Tract, Via Natural or Artificial Opening Endoscopic (ICD-10-PCS; 2022-09-16)
DX: K85.80 Other acute pancreatitis without necrosis or infection (principal); E66.9 Obesity, unspecified; Z68.34 Body mass index [BMI] 34.0-34.9, adult; R74.8 Abnormal levels of other serum enzymes; K76.0 Fatty (change of) liver, not elsewhere classified; F17.210 Nicotine dependence, cigarettes, uncomplicated; R07.81 Pleurodynia; J44.9 Chronic obstructive pulmonary disease, unspecified; E78.5 Hyperlipidemia, unspecified; E78.1 Pure hyperglyceridemia; E11.42 Type 2 diabetes mellitus with diabetic polyneuropathy; I49.8 Other specified cardiac arrhythmias; K26.9 Duodenal ulcer, unspecified as acute or chronic, without hemorrhage or perforation; K29.60 Other gastritis without bleeding
CPT/HCPCS: 0241U-QW; 36415; 71045-TC-FY; 72148-TC; 74177-TC; 74182-TC; 76705-TC; 78452-TC; 80048; 80053; 80061; 81003; 82550; 82941; 82962; 83605; 83690; 83735; 84436; 84443; 84478; 84484; 85025; 85610; 85730; 86140; 86850; 86900; 86901; 87045; 87046; 87086; 87205; 87209; 87324; 87449; 88305-TC; 88341-TC; 93005; 93010; 93017; 93306-TC; 94010; 99285-25; A9502; A9579; C9803-CS; G0008; J1644; J2785; Q2036; Q9967; U0003; U0005